=== PATIENT | female | born 1985 | race Caucasian/White ===

== ENCOUNTER 2020-02-02 08:06 | Inpatient (IN) ==
[2020-02-02] MEDS ORDERED: DEXTROSE 50% 50 ML SYRINGE IV PRN (08:55)
[2020-02-02] MEDS ORDERED: OXYTOCIN 30 UNITS/500 ML BAG IV PRN ×2 (08:55)
[2020-02-02] MEDS ORDERED: INSULIN REGULAR 250 UNITS in SODIUM CHLORIDE 0.9% 247.5 ML IV PRN (08:55)
[2020-02-02] MEDS ORDERED: SODIUM CHLORIDE 0.9% 1000ML 1,000 ML IV PRN (08:55)
[2020-02-02 09:18] LABS: Hematocrit (blood only) 38.8 % (37-47); Hemoglobin 12.9 g/dL (12.0-16.0); Mean Corpuscular Hemoglobin 29.1 pg (25-34); Mean Corpuscular Hgb Conc 33.2 g/dL (32-36); Mean Corpuscular Volume 87.4 fL (80-100); Platelet Count 227 K/uL (130-400); RDW Coefficient of Variation 14.4 % (11.5-14.5); RDW Standard Deviation 46.1 fL (36.4-46.3); Red Blood Count 4.44 M/uL (4.2-5.4); White Blood Count 10.39 K/uL (4.8-10.8)
[2020-02-02] MEDS: LACTATED RINGER'S 1,000 ML IV PRN ×2 (09:57→13:50)
[2020-02-02] MEDS: DEXTROSE 5% 1,000 ML IV PRN ×2 (10:00→19:44)
--- NOTE | 2020-02-02 10:54 | History & Physical Report ---
Date of Service February 02, 2020 Assessment & Plan (1) 39 weeks gestation of : Stephany Hall is a 34 y/o female with insulin-controlled gDM, asthma, migraines, and Meniere's disease, currently at 39+6 WGA with an FORTINO 02/03/20 as determined by ultrasound who is here for induction. -admit to L&D -IV site obtained, labs obtained -will closely monitor BSG -pitocin per protocol -AROM when indicated -FHT category 1 -epidural when desired -anticipated Admission and Anticipated Discharge Date Admission Date: February 02, 2020 History of Present Illness Primary Care Provider: NO PCP Stephany Hall is a 34 y/o female with insulin-controlled gDM, asthma, migraines, and Meniere's disease, currently at 39+6 WGA with an FORTINO 02/03/20 as determined by ultrasound who is here for induction. Few contractions; + movement; - fluid loss; - bloody show Had regular appointments with OB. Has been taking 38u long-acting insulin at bedtime along with 12u novolog at breakfast, 8u novolog at lunch, and 10u novolog at dinner. During she has not needed anything for her asthma and Meniere's disease; she has been taking supplements to control her migraines during , including CoQ10 (150mg daily), magnesium (200mg daily), and riboflavin (100mg daily). Blood type: A positive Antibody screen: neg Rubella: nonimmune VDRL/RPR: nonreactive Gonorrhea: negative Chlamydia: negative HIV: nonreactive HbSAg: nonreactive GBS: neg COVID-19 negative 01/22/2020 Allergies Allergy/AdvReac Type Severity Reaction Status Date / Time nifedipine [From Procardia] AdvReac Severe swelling Verified 02/01/20 19:53 and tingling, drug reaction rash hydrocodone [From Vicodin] AdvReac Sensitivity Verified 02/02/20 08:28 Home Medications Medication Instructions Recorded Confirmed Type acetaminophen [Tylenol Extra 500 mg PO Q6H PRN 10/02/19 02/02/20 History Strength] folic acid 1 mg tablet 1 mg PO DAILY #30 tab 11/10/19 02/02/20 Rx acetone (urine) test #50 ea 12/06/19 01/22/20 Rx blood sugar diagnostic #150 ea 12/06/19 01/22/20 Rx blood-glucose meter #1 ea 12/06/19 01/22/20 Rx lancets #102 ea 12/06/19 01/22/20 Rx miscellaneous medical supply #1 ea 12/15/19 01/22/20 Rx pen needle, diabetic 32 gauge x #150 ea 12/29/19 01/22/20 Rx 5/32" levothyroxine 25 mcg capsule 25 mcg PO .COMPLEX 01/02/20 02/02/20 History magnesium 200 mg tablet 200 mg PO DAILY 01/02/20 02/02/20 History ferrous sulfate 325 mg (65 mg 325 mg PO BID #60 tab 01/08/20 02/02/20 Rx iron) tablet Novolog Flexpen U-100 Insulin 100 See Rx Instructions .ROUTE 01/16/20 02/02/20 Rx unit/mL (3 mL) subcutaneous .COMPLEX #15 ml NS MDD 40 units insulin NPH isoph U-100 human 38 unit SUBCUT QPM 02/01/20 02/02/20 History [Novolin N Flexpen] riboflavin (vitamin B2) 50 mg PO DAILY 02/01/20 02/02/20 History CoQ-10 150 mg PO DAILY 02/02/20 02/02/20 History prenat.vits,elba,bye-owui-jmmvd 1 tab PO HS 02/02/20 02/02/20 History [ Vitamin] Past Med/Surg History Medical History (Updated 02/02/20 @ 08:28 by Makenna Ruvalcaba RN) Abnormal biochemical finding on screening of mother Asthma Basal cell carcinoma age 7 Basal cell carcinoma (BCC) of skin of nose Edema Encounter for anatomic survey Gestational diabetes mellitus (GDM) affecting , antepartum Hx of migraines Hx of varicella Hypothyroid (~06/15/19) Meniere disease Family History Mother Diabetes Grandfather (Maternal) Diabetes Grandfather (Paternal) Hx of migraines Aunt Colorectal cancer Father Hypertension Social History Smoking Status: Never smoker Second Hand Exposure: No; Hx Alcohol Use: No Hx Substance Use: No Preferred Language: Filipino Beliefs That Will Affect Care: None marital status: marital status details: Blas Smith 34 Current Living Situation: Spouse Current Living Situation Comment: lives with spouse, no pets current occupational status: unemployed Other Information That Helps Us Care for You: No Feels Safe at Home: Yes Safety Concerns: Feels Safe At This Time Assistive Devices: None Review of Systems Review of Systems: Denies fever or chills. Denies shortness of breath or cough. Denies chest pain. Denies breast pain. Denies dysuria or hematuria. Minimal swelling of her legs/feet bilaterally. Denies headache or changes in vision. Neurologic: denies change in vision Physical Exam Physical Exam: General: Alert, oriented. No acute distress. Cardiac: Regular rate and rhythm, no murmurs/rubs/gallops. Respiratory: Clear to auscultation bilaterally a/p, no wheezes/rales/rhonchi. No increased work of breathing. Symmetrical chest rise. No respiratory distress. Abdomen: Gravid. + heart tones. - palpable contractions. Pelvic: see attending documentation External FHT and external uterine monitors used; Category 1 tracing. Lower Extremities: Trace lower extremity edema. No deep calf pain. Donya's negative bilaterally. Results & Data Results & Data ([facility]) Vital Signs (Past 12 Hours) Vital Signs Temp Pulse Resp BP 02/02/20 10:36 71 137/90 02/02/20 10:21 75 134/85 02/02/20 09:40 36.7 C 80 20 126/80 02/02/20 08:16 80 126/80 Laboratory Results Labs at admission today H.9 Hct: 38.8 WBC: 10.39 Plt: 227 Code Status & VTE Plan VTE Prophylaxis Plan VTE Prophylaxis will be ordered: Yes Resident Activity Tracking Resident Involvement: Resident Care Provided Care Provided: OB Delivery
--- NOTE | 2020-02-02 13:16 | Labor Progress Brief Note ---
Date of Service February 02, 2020 Subjective Getting more uncomfortable. Assessment & Plan (1) Insulin controlled gestational diabetes mellitus (GDM) during : Continue IOL, Pit/ROM, epidural on request. Admission and Anticipated Discharge Date Admission Date: February 02, 2020 Physical Exam Physical Exam: /-2 Possible small LOF on chux and patient c/o "dripping." AROM of forebag during exam for small additional clear fluid. Doyline Q2 FHT Cat 1 Results & Data ([facility]) Vital Signs (Past 12 Hours) Vital Signs Temp Pulse Resp BP 02/02/20 12:19 98.1 F 78 20 133/86 02/02/20 11:07 71 16 136/86 02/02/20 11:02 70 20 125/69 02/02/20 10:36 71 20 137/90 02/02/20 10:21 75 134/85 02/02/20 09:40 98.1 F 80 20 126/80 02/02/20 08:16 80 126/80 Coding Level of Care Code None Diagnoses Insulin controlled gestational diabetes mellitus (GDM) during O24.414
[2020-02-02] MEDS ORDERED: BUPIVACAINE 0.25% 30 ML VIAL ONE (13:19)
[2020-02-02] MEDS ORDERED: ePHEDrine sulfate 50 MG/ML AMP ONE (13:19)
[2020-02-02] MEDS ORDERED: SODIUM CHLORIDE 0.9% INJ 10 ML VIAL ONE (13:19)
[2020-02-02] MEDS ORDERED: fentaNYL citrate 100 MCG/2 ML VIAL ONE (13:19)
[2020-02-02] MEDS ORDERED: fentaNYL 2MCG/ML ROPIVACAINE 1.25MG/ML 100 ML BAG EPI ONE (13:20)
[2020-02-02] MEDS ORDERED: NALOXONE HCL 0.4 MG/1 ML VIAL/CARP IV PRN (13:25)
[2020-02-02] MEDS ORDERED: NALOXONE HCL 1 MG in SODIUM CHLORIDE 0.9% 1000ML 1,000 ML IV PRN (13:25)
[2020-02-02] MEDS ORDERED: ePHEDrine sulfate 50 MG/ML AMP IV PRN (13:25)
[2020-02-02] MEDS ORDERED: ONDANSETRON INJ 2 MG/ML 2 ML VIAL IV PRN (13:25)
[2020-02-02] MEDS ORDERED: fentaNYL 2MCG/ML ROPIVACAINE 1.25MG/ML 100 ML BAG EPI PRN (13:25)
[2020-02-02] MEDS ORDERED: diphenhydrAMINE 50 MG/ML VIAL IV PRN (13:25)
--- NOTE | 2020-02-02 13:28 | Anesthesiology Consultation ---
Date of Service February 02, 2020 Assessment & Plan Chart Review Chart Review: Acceptable Risk for Surgery and Patient NOT seen in Pre Admission Testing Consults Requested none ASA ASA2 Proposed Anesthesia Anesthesia Type: MAC Spinal Risk / Benefits Reviewed With: PT / POA / Parent / Guardian, Accepts Plan and Informed Consent Obtained History Height/Weight Height: 5 ft 4 in Weight: 97.341 kg Allergies Allergy/AdvReac Type Severity Reaction Status Date / Time nifedipine [From Procardia] AdvReac Severe swelling Verified 02/01/20 19:53 and tingling, drug reaction rash hydrocodone [From Vicodin] AdvReac Sensitivity Verified 02/02/20 08:28 Medications Home Medications Medication Instructions Recorded Confirmed Last Taken acetaminophen [Tylenol Extra 500 mg PO Q6H PRN 10/02/19 02/02/20 01/30/20 21:00 Strength] folic acid 1 mg tablet 1 mg PO DAILY #30 tab 11/10/19 02/02/20 02/01/20 22:00 acetone (urine) test #50 ea 12/06/19 01/22/20 Unknown blood sugar diagnostic #150 ea 12/06/19 01/22/20 Unknown blood-glucose meter #1 ea 12/06/19 01/22/20 Unknown lancets #102 ea 12/06/19 01/22/20 Unknown miscellaneous medical supply #1 ea 12/15/19 01/22/20 Unknown pen needle, diabetic 32 gauge x #150 ea 12/29/19 01/22/20 Unknown " levothyroxine 25 mcg capsule 25 mcg PO .COMPLEX 01/02/20 02/02/20 02/01/20 05:00 magnesium 200 mg tablet 200 mg PO DAILY 01/02/20 02/02/20 02/01/20 22:00 ferrous sulfate 325 mg (65 mg 325 mg PO BID #60 tab 01/08/20 02/02/20 02/01/20 22:00 iron) tablet Novolog Flexpen U-100 Insulin 100 See Rx Instructions .ROUTE 01/16/20 02/02/20 02/02/20 06:15 unit/mL (3 mL) subcutaneous .COMPLEX #15 ml NS MDD 40 units insulin NPH isoph U-100 human 38 unit SUBCUT QPM 02/01/20 02/02/20 02/01/20 23:00 [Novolin N Flexpen] riboflavin (vitamin B2) 50 mg PO DAILY 02/01/20 02/02/20 02/01/20 06:00 CoQ-10 150 mg PO DAILY 02/02/20 02/02/20 02/01/20 08:00 prenat.vits,elba,nzu-wsdu-aiyyk 1 tab PO HS 02/02/20 02/02/20 02/01/20 22:00 [ Vitamin] Active Medications Generic Name Dose Route Start Last Admin Trade Name Freq PRN Reason Stop Dose Admin Dextrose 1,000 mls @ 100 mls/hr 02/02/20 08:55 02/02/20 10:00 D5w IV 03/03/20 08:54 100 mls/hr .Q10H PRN Administration BSG 180 or below Protocol Oxytocin 30 units in 500 mls @ 11 mls/hr 02/02/20 08:55 02/02/20 12:30 Pitocin IV 02/04/20 08:54 0.66 units/hr .Q24H PRN 11 mls/hr Labor Induction/Augmentation Titration Protocol 0.66 UNITS/HR Lactated Ringer's 1,000 mls @ 125 mls/hr 02/02/20 08:55 02/02/20 09:57 Lr IV 02/04/20 08:54 125 mls/hr .Q8H PRN Administration L&D Protocol Protocol NPO Date Last Intake of Fluids: 02/02/20 Time Last Intake of Fluids: 12:00 Date Last Intake of Solids: 02/02/20 Time Last Intake of Solids: 06:00 Past Medical History Medical History Abnormal biochemical finding on screening of mother Asthma Basal cell carcinoma age 7 Basal cell carcinoma (BCC) of skin of nose Edema Encounter for anatomic survey Gestational diabetes mellitus (GDM) affecting , antepartum Hx of migraines Hx of varicella Hypothyroid (~06/15/19) Meniere disease Exercise / Class Metabolic Activity II 4-5 Yardwork/Stairs/Walk up hill Past Family History Family History Mother Diabetes Grandfather (Maternal) Diabetes Grandfather (Paternal) Hx of migraines Aunt Colorectal cancer Father Hypertension Past Anesthesia History No Hx of Anesthesia Complications and No Family Hx of Anesthesia Complications History of PONV No Hx of PONV and No Hx of Motion Sickness Social History Smoking Status: Never smoker Hx Alcohol Use: No Hx Substance Use: No Review of Systems no chest pain or sob Physical Exam Vital Signs Last Vital Signs Temp 36.7 C 02/02/20 12:19 Pulse 86 02/02/20 13:27 Resp 20 02/02/20 12:19 BP 131/78 02/02/20 13:27 SpO2 97 ENMT Mouth: no TMJ abnormality Thyromental Distance: > or= 3.5 Finger Breadths Mallampati Class: II Neck normal visual inspection Respiratory normal respiratory effort Auscultation: lungs clear to auscultation bilaterally Cardiovascular Rate/Rhythm: regular rate and regular rhythm Musculoskeletal Spine: normal cervical ROM Neurologic moves all extremities Psychiatric Orientation: alert and oriented x 3 Testing Laboratory Results 02/02/20 09:04 02/02/20 02/02/20 02/02/20 12:36 11:28 11:11 POC Glucose 71 76 68 L* 02/02/20 02/02/20 02/02/20 11:09 10:44 09:48 POC Glucose 69 L* 59 L* 70 02/02/20 08:48 POC Glucose 110 H
--- NOTE | 2020-02-02 19:13 | Labor Progress Brief Note ---
Date of Service February 02, 2020 Subjective Patient comfortable with epidural Assessment & Plan (1) Insulin controlled gestational diabetes mellitus (GDM) during : Continue pitocin, epidural, insulin protocol Admission and Anticipated Discharge Date Admission Date: February 02, 2020 Physical Exam Physical Exam: / Bloody show / LOF continue FHT Cat 1 Ardoch Q2m Results & Data ([facility]) Vital Signs (Past 12 Hours) Vital Signs Temp Pulse Resp BP Pulse Ox 02/02/20 19:09 77 100 02/02/20 19:04 68 100 02/02/20 19:03 68 116/62 02/02/20 18:59 69 100 02/02/20 18:54 71 100 02/02/20 18:49 80 100 02/02/20 18:48 88 132/81 02/02/20 18:44 80 99 02/02/20 18:34 72 16 136/83 02/02/20 18:19 77 139/81 02/02/20 18:04 73 20 139/81 02/02/20 17:49 70 133/81 02/02/20 17:34 72 16 128/76 02/02/20 17:19 71 16 139/76 02/02/20 17:04 97.7 F 67 20 126/77 02/02/20 16:53 74 100 02/02/20 16:48 73 125/69 100 02/02/20 16:43 79 100 02/02/20 16:38 77 100 02/02/20 16:35 85 146/72 H 02/02/20 16:33 92 H 100 02/02/20 16:28 79 100 02/02/20 16:23 71 98 02/02/20 16:19 71 116/71 02/02/20 16:18 74 99 02/02/20 16:13 70 98 02/02/20 16:08 69 98 02/02/20 16:03 69 114/62 100 02/02/20 15:58 69 99 02/02/20 15:53 69 98 02/02/20 15:48 79 118/61 100 02/02/20 15:43 69 99 02/02/20 15:38 70 99 02/02/20 15:34 76 120/69 02/02/20 15:33 71 100 02/02/20 15:28 74 100 02/02/20 15:23 74 99 02/02/20 15:18 97.5 F L 107 H 16 118/70 100 02/02/20 15:13 62 100 02/02/20 15:08 68 100 02/02/20 15:04 63 120/73 02/02/20 15:03 63 100 02/02/20 14:58 63 100 02/02/20 14:53 63 100 02/02/20 14:49 60 126/74 02/02/20 14:48 63 100 02/02/20 14:43 64 100 02/02/20 14:38 75 100 02/02/20 14:34 62 134/77 02/02/20 14:33 64 100 02/02/20 14:28 59 L 100 02/02/20 14:23 79 100 02/02/20 14:18 66 128/73 100 02/02/20 14:13 62 100 02/02/20 14:08 75 100 02/02/20 14:04 66 20 132/77 02/02/20 14:03 67 100 02/02/20 13:58 77 100 02/02/20 13:48 75 99 02/02/20 13:47 71 136/73 02/02/20 13:45 75 20 135/72 02/02/20 13:43 74 136/65 100 02/02/20 13:39 68 136/66 02/02/20 13:38 80 97 02/02/20 13:35 98.1 F 82 20 141/92 H 02/02/20 13:33 84 99 02/02/20 13:28 88 99 02/02/20 13:27 86 131/78 02/02/20 12:19 98.1 F 78 20 133/86 02/02/20 11:07 71 16 136/86 02/02/20 11:02 70 20 125/69 02/02/20 10:36 71 20 137/90 02/02/20 10:21 75 134/85 02/02/20 09:40 98.1 F 80 20 126/80 02/02/20 08:16 80 20 126/80 Coding Level of Care Code None Diagnoses Insulin controlled gestational diabetes mellitus (GDM) during O24.414
--- NOTE | 2020-02-03 00:04 | Delivery Summary ---
Vaginal Delivery Summary Date of Service February 02, 2020 Vaginal Delivery Summary DIAGNOSES: 1. Brennan intrauterine at 39w6d gestation. 2. Induction of Labor. 3. Group B Streptococcus Neg 4. A2 Gestational Diabetes 5. Hypothyroidism during . PROCEDURE: Spontaneous vaginal delivery and repair of second degree laceration. SURGEON: Shilpi Bolivar MD. MEDICAL ADMINISTRATIVE ASSISTANT: None. ESTIMATED BLOOD LOSS: 300 mL. COMPLICATIONS: None. PLACENTA: Spontaneous and intact with a 3-vessel cord. DISPOSITION: Stable to labor and delivery. DESCRIPTION: The patient pushed well and brought the head to in YESSY position. Deceleration to the 90s was noted, a Kiwi was put on the table and a red rubber catheter was used to empty the bladder after betadine prep. The mother was asked to give maximum pushing effort, and she was able to effect delivery of the head without any further assistance / vacuum was never applied. The perineum was protected during this time. There was a tight nuchal cord that was reduced at the perineum. The shoulders delivered easily with a maternal pushing effort. The right shoulder was anterior. The body delivered without any difficulty, and the was placed on the maternal abdomen. It was pale and limp; the cord was doubly clamped by the MD and then cut so the baby could be taken to the warmer for immediate attention. See peds documentation for details of resuscitation. Cord blood was collected and the placenta delivered spontaneously (before a section of cord could be isolated, so no cord gases were able to be collected) and was noted to be intact and with a 3VC. The cervix, vagina and perineum were examined and were found to have a second degree laceration, which was repaired using vicryl in the usual manner. There was no rectal injury. The fundus was firm and lochia minimal immediately after delivery. [facility] Vaginal Delivery Charge Vaginal Delivery Codes: 83341 global code for the antepartum, delivery, and post-
[2020-02-03] MEDS ORDERED: IBUPROFEN 600 MG TAB PO ONE (00:59)
[2020-02-03] MEDS ORDERED: ACETAMINOPHEN 325 MG TAB PO PRN (01:49)
[2020-02-03] MEDS ORDERED: DIPHTHERIA/TETANUS/PERTUSSIS 0.5 ML SYR/VIAL IM ONE (01:49)
[2020-02-03] MEDS ORDERED: oxyCODONE/ACETAMINOPHEN 5mg/325mg TAB PO PRN (01:49)
[2020-02-03] MEDS ORDERED: HYDROCORTISONE ACETATE 25 MG SUPP PR PRN (01:49)
[2020-02-03] MEDS ORDERED: BENZOCAINE 20% AER SPR 82.5 GM CAN EXT PRN (01:49)
[2020-02-03] MEDS ORDERED: SUPERCREAM 0.870% 15 GM JAR EXT PRN (01:49)
[2020-02-03] MEDS ORDERED: BENZOCAINE 20% AER SPR 82.5 GM CAN EXT ONE (01:56)
--- NOTE | 2020-02-03 05:33 | Obstetrical Progress Note ---
Date of Service <Serafin Silverio MD - Last Filed: 02/03/20 07:05> February 03, 2020 Assessment & Plan <Serafin Silverio MD - Last Filed: 02/03/20 07:05> (1) : A/P: Stephany Hall is a 34 y/o female on PPD#1 following at 39+6 weeks, complicated by gDM and hypothyroidism. * Patient feels well today; eating well, voiding well, ambulating well * Pain well-controlled with ibuprofen 600mg q4h prn * PNL: Rh pos, RI, GBS neg, COVID neg * Routine postcesarean care: OOB, ambulation, diet progression as tolerated * After discharge, will have six-week follow-up with Dr. Bolivar Subjective <Serafin Silverio MD - Last Filed: 02/03/20 07:05> Stephany Hall is a 34 y/o female on PPD#1 following at 39+6 weeks, complicated by gDM and hypothyroidism. She reports feeling well overall this morning. Mild abdominal cramping and 2-4/10 pain well managed on analgesics. Voiding well. Tolerating meals overnight with mild nausea. Patient has been able to ambulate some, with mild but improving lightheadedness. Has persistent lochia with some improvement this morning. Currently . Denies fever or chills. Denies cough or shortness of breath. Denies chest pain. Denies dysuria. Denies leg pain. Denies headache or changes in vision. Physical Exam <Serafin Silverio MD - Last Filed: 02/03/20 07:05> General: alert, oriented, no acute distress Cardiac: regular rate and rhythm, no murmurs appreciated Respiratory: lungs clear to auscultation bilaterally a/p, no wheezes/rales/rhonchi, no increased work of breathing, symmetrical chest rise, no respiratory distress Abdomen: soft, minimally tender, nondistended, bowel sounds present Uterus: uterine fundus firm, palpable at umbilicus Lower extremities: no lower extremity edema or swelling, no deep calf pain, Donya's negative bilaterally Results & Data ([facility]) <Serafin Silverio MD - Last Filed: 02/03/20 07:05> Vital Signs (Past 12 Hours) Vital Signs Temp Pulse Pulse Resp BP BP Pulse Ox 02/03/20 03:35 36.9 C 77 18 127/69 02/03/20 02:10 36.7 C 79 18 132/75 97 02/03/20 01:55 18 02/03/20 01:40 98 H 133/61 02/03/20 01:25 101 H 18 131/69 02/03/20 00:55 80 18 116/57 L 02/03/20 00:40 89 18 120/58 L 02/03/20 00:25 95 H 18 154/63 H 02/03/20 00:10 94 H 18 133/75 02/02/20 23:55 90 18 131/68 02/02/20 23:46 86 122/60 02/02/20 23:44 89 100 02/02/20 23:39 80 98 02/02/20 23:34 89 97 02/02/20 23:33 103 H 135/68 02/02/20 23:32 105 H 85 L 02/02/20 23:29 96 H 98 02/02/20 23:24 107 H 97 02/02/20 23:19 121 H 99 02/02/20 23:18 95 H 93 02/02/20 23:14 110 H 98 02/02/20 23:09 112 H 97 02/02/20 23:04 130 H 97 02/02/20 22:59 115 H 97 02/02/20 22:54 36.5 C 116 H 20 96 02/02/20 22:49 95 H 98 02/02/20 22:45 101 H 91 02/02/20 22:44 84 98 02/02/20 22:39 102 H 99 02/02/20 22:35 111 H 84 L 02/02/20 22:34 96 H 98 02/02/20 22:33 93 H 128/89 02/02/20 22:29 94 H 98 02/02/20 22:24 87 99 02/02/20 22:20 113 H 94 02/02/20 22:19 95 H 96 02/02/20 22:18 88 124/63 02/02/20 22:14 81 99 02/02/20 22:09 84 100 02/02/20 22:04 86 100 12/11/20 22:03 90 144/94 H 12/11/20 21:59 89 100 02/02/20 21:54 76 100 02/02/20 21:49 80 100 02/02/20 21:48 80 133/82 02/02/20 21:44 78 100 02/02/20 21:39 75 98 02/02/20 21:34 74 100 02/02/20 21:32 80 128/80 02/02/20 21:29 78 100 02/02/20 21:24 71 100 02/02/20 21:20 37.6 C H 18 02/02/20 21:19 67 121/74 99 02/02/20 21:14 68 100 02/02/20 21:12 90 93 02/02/20 21:09 69 99 02/02/20 21:04 65 100 02/02/20 21:03 65 128/78 02/02/20 20:59 73 100 02/02/20 20:54 69 99 02/02/20 20:49 73 98 02/02/20 20:48 73 129/74 02/02/20 20:44 69 98 02/02/20 20:39 72 99 02/02/20 20:34 73 130/78 100 02/02/20 20:29 75 99 02/02/20 20:24 88 99 02/02/20 20:19 84 99 02/02/20 20:18 75 115/56 L 02/02/20 20:14 79 100 02/02/20 20:09 75 99 02/02/20 20:04 93 H 115/70 99 02/02/20 19:59 82 99 02/02/20 19:54 82 100 02/02/20 19:49 77 99 02/02/20 19:48 76 113/60 02/02/20 19:44 74 99 02/02/20 19:39 74 100 02/02/20 19:34 73 108/63 100 02/02/20 19:29 81 99 02/02/20 19:24 74 100 02/02/20 19:19 79 99 02/02/20 19:18 71 111/56 L 02/02/20 19:15 37.3 C 18 02/02/20 19:14 82 100 02/02/20 19:09 77 100 02/02/20 19:04 68 100 02/02/20 19:03 68 116/62 02/02/20 18:59 69 100 02/02/20 18:54 71 100 02/02/20 18:49 80 100 02/02/20 18:48 88 132/81 02/02/20 18:44 80 99 02/02/20 18:34 72 16 136/83 02/02/20 18:19 77 139/81 02/02/20 18:04 73 20 139/81 02/02/20 17:49 70 133/81 02/02/20 17:34 72 16 128/76 <Shilpi Bolivar MD - Last Filed: 02/03/20 07:33> Co-Signing Physician Notes I have reviewed the resident's note and examined the patient myself, and agree with the note above except where it refers to post- care, as this patient had a VAGINAL delivery. Resident Activity Tracking <Serafin Silverio MD - Last Filed: 02/03/20 07:05> Resident Involvement: Resident Care Provided Care Provided: OB Delivery
[2020-02-03] MEDS: LEVOTHYROXINE SODIUM 25 MCG TABLET PO SCH (06:20)
[2020-02-03] MEDS: IBUPROFEN 600 MG TAB PO PRN ×3 (07:47→19:42)
[2020-02-03] MEDS: DOCUSATE SODIUM 100 MG CAP PO SCH ×2 (07:47→19:42)
[2020-02-03] MEDS: PRENATAL VITAMIN 1 TAB PO SCH (07:47)
--- NOTE | 2020-02-03 09:14 | Anesthesia Procedure Note ---
Date of Service February 03, 2020 Anesthesia Post Epidural Note Vital Signs Vital Signs: Temp Pulse Resp BP Pulse Ox 36.9 C 77 18 127/69 97 02/03/20 03:35 02/03/20 03:35 02/03/20 03:35 02/03/20 03:35 02/03/20 02:10 Pain Intensity Abdomen: Pain Intensity: 3 Notes Mental Status: alert / awake / arousable and participated in evaluation Nausea / Vomiting: adequately controlled Pain: adequately controlled Airway Patency, RR, SpO2: stable & adequate BP & HR: stable & adequate Hydration State: stable & adequate Neuraxial Anesthesia: was administered and sensory block is resolving Anesthetic Complications: no major complications apparent Epidural: Removed without complications and With tip intact
--- NOTE | 2020-02-03 15:19 | Obstetrical Progress Note ---
Date of Service February 03, 2020 Assessment & Plan Admission and Anticipated Discharge Date Admission Date: February 02, 2020 -Given change in pt's symptoms compared to this AM, however unable to confirm that R leg actually measures smaller than left normally and there is pins/needles sensation so will order duplex to r/o clot Subjective Informed by nursing that pt's R leg had become slightly more swollen and was experiencing numbness/tingling to above the knee. Pt evaluated at bedside and noted the same to me. Has been going on x 1 hr, has not improve or worsened since it began. No aggravating or alleviating factors. Denies pain in legs ,chest pain, SOB. Notes that her right leg tended to get more swollen than the left even before delivery, so this seems consistent Physical Exam Constitutional: WD/WN, vitals as above no acute distress Respiratory: normal respiratory effort; no respiratory distress and no labored breathing Cardiovascular: Bilateral extremities are nontender and nonerythematous R lower extremity does appear slightly more swollen than the left, when measured is approx 1cm in difference in circumference Pt notes pins and needles sensation above ankle to above knee, but no issues with feet. Results & Data ([facility]) Vital Signs (Past 12 Hours) Vital Signs Temp Pulse Pulse Resp BP BP Pulse Ox 02/03/20 12:00 99.0 F 89 18 117/68 97 02/03/20 07:50 98.1 F 80 18 115/71 97 02/03/20 03:35 98.4 F 77 18 127/69 PG Care Time/CCT Total # of Minutes Spent Total Time Spent with Patient: Total time spent is greater than 50% in coordination of care (as documented) at patient's floor/unit and/or counseling patient: Coding Level of Care Code None
--- NOTE | 2020-02-03 16:50 | Ultrasound Report ---
ULTRASOUND RIGHT LOWER EXTREMITY VENOUS CLINICAL HISTORY: Right ankle swelling. COMPARISON STUDY: No priors. TECHNIQUE: Real-time, grayscale, and color Doppler sonography of the deep veins of the right lower ex tremity was performed from the inguinal crease to the calf. Compression and augmentation were utilize d. FINDINGS: There is no sonographic evidence of deep venous thrombosis identified in the right lower ex tremity. The common femoral, superficial femoral, and popliteal veins are patent and normally sarah sible. The greater saphenous vein and the profunda femoris vein at the junction with the common femor al vein are clear. The visualized calf veins are patent. Soft tissue edema is noted in the ankle. IMPRESSION: There is no sonographic evidence of deep venous thrombosis identified in the right lower extremity. ACT 112: Negative or not required by law. Electronically signed by: Shlomo Monge M.D. 02/03/2020 4:49 PM
[2020-02-04 05:59] LABS: Hematocrit (blood only) 34.7 % (37-47); Hemoglobin 11.3 g/dL (12.0-16.0); Mean Corpuscular Hemoglobin 28.9 pg (25-34); Mean Corpuscular Hgb Conc 32.6 g/dL (32-36); Mean Corpuscular Volume 88.7 fL (80-100); Platelet Count 201 K/uL (130-400); RDW Coefficient of Variation 14.8 % (11.5-14.5); Red Blood Count 3.91 M/uL (4.2-5.4)
[2020-02-04] MEDS: LEVOTHYROXINE SODIUM 25 MCG TABLET PO SCH (07:29)
--- NOTE | 2020-02-04 08:00 | Obstetrical Progress Note ---
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 Reassuring that it has improved over the last day, rec continue to monitor but let us know if it does not continue to improve -A+/rubella immune/ -f/u 6 weeks for appt, stable for DC today Subjective Ambulation: ambulating normally Voiding: no voiding problems Passing Gas:: Yes Diet Tolerance:: regular diet Lochia:: Small Feeding Type:: breast feeding Pain well managed with medication. Believes tingling on anterior R purvis has improved slightly, still nothing on posterior aspect Review of Systems Denies fevers, chills, n/v, MCELROY, CP, SOB Physical Exam Constitutional WD/WN, vitals as above no acute distress Respiratory normal respiratory effort, lungs clear to auscultation Cardiovascular RRR, no murmur, no edema Gastrointestinal (Abdomen) Percussion/Palpation: abdomen soft; abdomen nontender and no guarding fundus firm at umbilicus and NT Musculoskeletal BLE symmetric, nonerythematous, nontender. No skin changes over area that is noted tingling b/w knee and ankle Results & Data ([facility]) Vital Signs (Past 12 Hours) Vital Signs Temp Pulse Resp BP 02/03/20 23:55 98.1 F 89 18 116/66 Laboratory Results 02/04/20 Range/Units 05:45 WBC 14.00 H (4.8-10.8) K/uL RBC 3.91 L (4.2-5.4) M/uL Hgb 11.3 L (12.0-16.0) g/dL Hct 34.7 L (37-47) % MCV 88.7 (80-100) fL MCH 28.9 (25-34) pg MCHC 32.6 (32-36) g/dL RDW Std Deviation 48.0 H (36.4-46.3) fL RDW Coeff of [place] 14.8 H (11.5-14.5) % Plt Count 201 (130-400) K/uL MPV 10.0 (7.4-10.4) fL Diagnostic Findings ULTRASOUND RIGHT LOWER EXTREMITY VENOUS CLINICAL HISTORY: Right ankle swelling. COMPARISON STUDY: No priors. TECHNIQUE: Real-time, grayscale, and color Doppler sonography of the deep veins of the right lower extremity was performed from the inguinal crease to the calf. Compression and augmentation were utilized. FINDINGS: There is no sonographic evidence of deep venous thrombosis identified in the right lower extremity. The common femoral, superficial femoral, and popliteal veins are patent and normally compressible. The greater saphenous vein and the profunda femoris vein at the junction with the common femoral vein are clear. The visualized calf veins are patent. Soft tissue edema is noted in the ankle. IMPRESSION: There is no sonographic evidence of deep venous thrombosis identified in the right lower extremity.
[2020-02-04] MEDS ORDERED: MEASLES, MUMPS & RUBELLA VIRUS VIAL SQ ONE (09:27)
[2020-02-04] MEDS: PRENATAL VITAMIN 1 TAB PO SCH (09:39)
[2020-02-04] MEDS: DOCUSATE SODIUM 100 MG CAP PO SCH (09:39)
[2020-02-04] MEDS: IBUPROFEN 600 MG TAB PO PRN ×2 (09:40)
== END 2020-02-04 12:30 | disposition home or self-care (01) ==
LOC: 4S1 08:06 → 4S2 02-03 02:44